=== PATIENT | male | born 1990 | race Caucasian/White ===

== ENCOUNTER → 2017-02-26 | Outpatient (CLI) | payer OTHER | LOC: MHUC 13:01 | PROVIDERS: ATTEND Physician Assistant | DX: Z53.8 Procedure and treatment not carried out for other reasons (principal) ==

== ENCOUNTER → 2017-02-26 | Outpatient (CLI) | payer OTHER ==
[2017-02-26 13:39] VITALS: BP 129/79
--- NOTE | 2017-02-26 13:39 | Urgent Care T Sheet Gen (E) ---
Intake General Temperature (Fahrenheit): 97.9 Pulse: 75 Blood Pressure Systolic: 129 Blood Pressure Diastolic: 79 Respirations: 16 SPO2: 98 Description of Symptoms Patient presents with a wart to the posterior R upper arm. First noticed about a month ago. Has been using OTC ointment without improvement. States it hasn' t grown in size but he knows it is there and picks at it. Respiratory Constitutional Symptoms: No syptoms reported EENTM: No symptoms reported Respiratory: No symptoms reported Cardiovascular: No symptoms reported Gastrointestinal/Abdominal: No symptoms reported Skin: Other (wart) All Other Systems Reviewed Remaining Systems: All other systems reviewed with negative findings Physical Exam Physical Exam General Appearance: WD/WN No apparent distress Skin Exam: Other (wart noticed along the posterior R upper arm. is rough and raised.) Procedures/Interventions Additional Procedure/Treatment : Progress I used our freeze-off OTC preparation and froze the wart. Patient tolerated procedure without issue. Departure Urgent Care Impression Impression: Primary Impression: Wart Qualified Code: B07.8 - Other viral warts Departure Disposition: HOME OR SELF-CARE Condition: Stable Referrals: KATLIN MORRIS MD (PCP) Additional Instructions: I gave the patient 3 treatment options: freezing the wart, cutting the wart off , or topical imiquimod. Patient chose freezing, which I did in clinic. Our available cryotherapy isn't very potent. I told him to keep an eye on it over the next week. If the wart changes appearance by Wednesday, he is to stop by and I may be able to shave off some of the tissue and possibly re-freeze it. Patient understands DC instructions. All questions were answered. End of report . RYLEY ALFORD February 26, 2017 13:39
== END ==
LOC: MHUC 13:05
PROVIDERS: ATTEND Physician Assistant
DX: B07.8 Other viral warts (principal)
CPT/HCPCS: 99213